=== PATIENT | male | born 1985 | race African-American/Black ===

== ENCOUNTER 2017-11-28 01:15 | Emergency (ER) | payer OTHER ==
[~2017-11-28] VITALS: Ht 180.3 cm; Wt 70.3 kg
[2017-11-28] MEDS ORDERED: DECADRON4 MG PO (03:02)
[2017-11-28] MEDS ORDERED: ALBUTEROL2.5 MG/31 INH (03:02)
[2017-11-28] MEDS ORDERED: IPRATROPIU0.2 MG/1 M INH (03:02)
[2017-11-28] MEDS ORDERED: VENTOLIN HFA 1818 GM INH (03:02)
[2017-11-28 03:11] VITALS: BP 125/79
== END 2017-11-28 03:12 | disposition home or self-care (01) ==
LOC: ER 01:15
DX: J45.901 Unspecified asthma with (acute) exacerbation (principal)

== ENCOUNTER 2018-05-17 19:40 | Emergency (ER) | payer OTHER ==
[~2018-05-17] VITALS: Ht 180.3 cm; Wt 77.1 kg
[~2018-05-17 19:40] MED LIST: ALBUTEROL2.5 MG/31 INH; DECADRON4 MG PO; IPRATROPIU0.2 MG/1 M INH; VENTOLIN HFA 1818 GM INH
[2018-05-17] MEDS ORDERED: SINGULAIR 10 MG10 M1 PO (19:59)
[2018-05-17] MEDS ORDERED: MOBIC15 MG PO (20:56)
[2018-05-17 21:06] VITALS: BP 130/82
== END 2018-05-17 21:07 | disposition home or self-care (01) ==
LOC: ER 19:40
DX: S20.212A Contusion of left front wall of thorax, initial encounter (principal); J45.909 Unspecified asthma, uncomplicated; Z87.442 Personal history of urinary calculi; W21.05XA Struck by basketball, initial encounter; Y93.67 Activity, basketball; Y92.89 Other specified places as the place of occurrence of the external cause; Y99.8 Other external cause status

== ENCOUNTER 2018-08-26 00:49 | Emergency (ER) | payer BC, OTHER ==
[~2018-08-26] VITALS: Ht 180.3 cm; Wt 77.1 kg
[~2018-08-26 00:49] MED LIST changes: +MOBIC15 MG PO; +SINGULAIR 10 MG10 M1 PO
[2018-08-26] MEDS ORDERED: PREDNISONE50 MG PO (02:19)
[2018-08-26 02:35] VITALS: BP 113/76
== END 2018-08-26 02:39 | disposition home or self-care (01) ==
LOC: ER 00:49
DX: J06.9 Acute upper respiratory infection, unspecified (principal); J45.909 Unspecified asthma, uncomplicated; Z87.442 Personal history of urinary calculi